=== PATIENT | male | born 1985 | race African-American/Black ===

== ENCOUNTER 2020-07-27 07:25 | Outpatient (REF) | payer OTHER, SELFPAY ==
[2020-07-27 11:30] LABS: MANUAL DIFF FLAG NO
[2020-07-27 11:39] LABS: Basophils Percent Auto 0.4 % (0-2); Eosinophils Absolute Auto 0.4 X10*3/uL (0.0-0.4); Eosinophils Percent Auto 8.3 % (0-4); Hematocrit 44.2 % (42-52); Hemoglobin 14.6 g/dl (14.0-18.0); Lymphocytes Absolute Auto 2.4 X10*3/uL (1.2-4.9); Lymphocytes Percent Auto 52.5 % (20-40); Mean Corpuscular Hemoglobin 29.8 pg (27.0-33.0); Mean Corpuscular Volume 90.2 fL (80-98); Mean Platelet Volume 11.1 fL (9.4-12.4); Monocytes Absolute Auto 0.6 X10*3/uL (0.1-1.2); Monocytes Percent Auto 12.5 % (2-11); Neutrophils Absolute Auto 1.2 X10*3/uL (2.0-8.3); Neutrophils Percent Auto 26.3 % (45-73); Platelet Count 215 X10*3/uL (160-400); Red Cell Distribution Width 13.2 % (11.0-16.0); White Blood Count 4.6 X10*3/uL (4.8-10.8)
[2020-07-27 11:56] LABS: Anion Gap 14 (12-20); Blood Urea Nitrogen 12 mg/dL (9-16); Calcium 8.6 mg/dL (8.4-10.2); Carbon Dioxide 24 mmol/L (22-29); Chloride 105 mmol/L (96-108); Cholesterol 180 mg/dL; Estimated Glomerular Filt Rate > 60; Glucose Fasting 84 mg/dL (60-99); HDL Cholesterol 67 mg/dL; LDL Cholesterol Calculated 99 mg/dl; Potassium 3.8 mmol/l (3.3-5.1); Sodium 139 mmol/L (135-145); Triglycerides 74 mg/dL
[2020-07-27 12:25] LABS: Alanine Aminotransferase 19 U/L (0-40); Aspartate Amino Transferase 18 U/L (5-37)
[2020-07-27 13:29] LABS: CT PCR NOT DETECTED (Not Detect.); NG PCR NOT DETECTED (Not Detect.)
[2020-07-28 09:39] LABS: HIV AB/AG Nonreactive (Nonreactive); HIV Num 1 0.07 S/CO (0.00-0.99); ~HepC Num1 0.09 S/CO (0.00-0.79); ~Hepatitis C Antibody Nonreactive (Nonreactive)
[2020-08-05 08:32] LABS: Vitamin D 25-OH, D2 <4 ng/mL; Vitamin D 25-OH, D3 16 ng/mL; Vitamin D 25-OH, Total 16 ng/mL (30-100)
== END 2020-07-27 07:26 | disposition home or self-care (01) ==
LOC: HO.HMGCLDS 07:25
PROVIDERS: PCP Internal Medicine; Visit Provider Nurse Practitioner Family
DX: Z00.00 Encounter for general adult medical examination without abnormal findings (principal)
CPT/HCPCS: 36415; 80048; 80061; 82306; 84450; 84460; 85025; 86803; 87389; 87491; 87591

== ENCOUNTER 2020-09-22 13:15 | Outpatient (REF) | payer OTHER, SELFPAY ==
[2020-09-23 20:17] LABS: C. trachomatis RNA TMA NOT DETECTED (NOT DETECTED); N. gonorrhoeae RNA TMA NOT DETECTED (NOT DETECTED)
== END 2020-09-22 13:16 | disposition home or self-care (01) ==
LOC: HO.LAB 13:15
PROVIDERS: Visit Provider Nurse Practitioner Family
DX: Z13.9 Encounter for screening, unspecified (principal); R36.0 Urethral discharge without blood; Z00.00 Encounter for general adult medical examination without abnormal findings
CPT/HCPCS: 87491; 87591

== ENCOUNTER 2020-10-04 12:11 | Outpatient (REF) | payer OTHER, SELFPAY ==
--- NOTE | 2020-10-04 12:18 | XR_ITS ---
EXAMINATION: XR CERVICAL SPINE CLINICAL INFORMATION: Sprain COMPARISON: None TECHNIQUE: 3 views of the cervical spine were obtained. FINDINGS: There is significant head tilt to the right. Bone alignment is otherwise normal. No fracture or dislocation is seen. Disc spaces are normal. Prevertebral soft tissues are normal. XR/XR cervical spine 3V IMPRESSION: Significant head tilt to the right. No fracture or dislocation seen.
== END 2020-10-04 12:12 | disposition home or self-care (01) ==
LOC: HO.HMGCX 12:11
PROVIDERS: PCP Internal Medicine; Visit Provider Nurse Practitioner Family
DX: S13.4XXA Sprain of ligaments of cervical spine, initial encounter (principal)
CPT/HCPCS: 72040